=== PATIENT | female | born 1985 | race Caucasian/White ===

== ENCOUNTER 2018-07-04 21:37 | Outpatient (CLI) | payer MEDICAID ==
[2018-07-04 23:07] LABS: ADD UMIC YES; UR ASCORBIC ACID NEGATIVE (NEGATIVE); UR BACTERIA MANY /HPF (NONE SEEN); UR BILIRUBIN (Dip) NEGATIVE (NEGATIVE); UR BLOOD (Dip) NEGATIVE (NEGATIVE); UR CLARITY SLIGHTLY CLOUDY (CLEAR); UR COLOR YELLOW (YELLOW); UR GLUCOSE (Dip) NEGATIVE (NEGATIVE); UR KETONES (Dip) TRACE mg/dL (NEGATIVE); UR LEUKOCYTE ESTERASE (Dip) 3+ Leu/ul (NEGATIVE); UR NITRITE (Dip) NEGATIVE (NEGATIVE); UR RBC 1 /HPF (0-5); UR SPECIFIC GRAVITY (Dip) 1.005 (1.003-1.030); UR SQUAMOUS EPITHELIAL CELL FEW /HPF (FEW); UR TOTAL PROTEIN (Dip) NEGATIVE (NEGATIVE); UR UROBILINOGEN (Dip) NEGATIVE (NEGATIVE); UR WBC 19 /HPF (0-5)
[2018-07-04] MEDS ORDERED: LACTATED RINGER'S 1,000 ML IV (23:30)
[2018-07-04] MEDS ORDERED: ACETAMINOPHEN 325 MG TAB PO (23:30)
[2018-07-04] MEDS: SOD CHLORIDE 0.9% 1,000 ML IV (23:40)
[2018-07-04] MEDS: AL HYDROX/MG HYDROX/SIMETH 30 ML CUP PO (23:41)
[2018-07-05] MEDS ORDERED: LACTATED RINGER'S 1,000 ML IV*
[2018-07-05] MEDS: CEFTRIAXONE 1 GM/50 ML (PMX) 50 ML IVPB (00:03)
[2018-07-05] MEDS: SOD CHLORIDE 0.9% 1,000 ML IV (00:04)
[2018-07-05 00:13] LABS: ADD MAN DIFF? NO; BASOPHILS % 0.2 % (0.0-2.0); EOSINOPHILS # 0.1 10^3/ul (0.0-0.5); EOSINOPHILS % 0.5 % (0.0-7.0); HEMATOCRIT 31.5 % (37.0-47.0); HEMOGLOBIN 10.4 g/dl (12.0-16.0); LYMPHOCYTES # 1.7 10^3/ul (0.8-2.9); LYMPHOCYTES % 17.9 % (15.0-51.0); MEAN CORPUSCULAR HEMOGLOBIN 27.2 pg (29.0-33.0); MEAN CORPUSCULAR VOLUME 82.2 fl (82.0-101.0); MONOCYTE # 0.5 10^3/ul (0.3-0.9); MONOCYTES % 5.5 % (0.0-11.0); NEUTROPHIL # 7.1 10^3/ul (1.6-7.5); NEUTROPHILS % 75.6 % (39.0-77.0); PLATELET COUNT 355 10^3/UL (140-415); RED BLOOD COUNT 3.83 10^6/ul (4.20-5.40); RED CELL DISTRIBUTION WIDTH 12.9 % (11.5-14.5)
[2018-07-05 00:13] LABS: WHITE BLOOD COUNT 9.4 10^3/ul (4.8-10.8)
[2018-07-05] MEDS: ACETAMINOPHEN 1000MG/100ML IV 100 ML IVPB (01:27)
[2018-07-05] MEDS ORDERED: OXYCODONE/ACETAMINOPHEN (5/325) TAB PO (02:00)
[2018-07-05] MEDS: OXYCODONE/ACETAMINOPHEN (5/325) TAB PO ×2 (02:30)
[2018-07-05] MEDS: FAMOTIDINE 20 MG INJ IV (03:34)
[2018-07-05 04:19] LABS: ALANINE AMINOTRANSFERASE 21 IU/L (13-69); ALBUMIN 3.3 g/dl (3.3-4.9); ALBUMIN/GLOBULIN RATIO 1.03; ALKALINE PHOSPHATASE 90 IU/L (42-121); AMYLASE 118 U/L (11-123); ANION GAP 17 (8-16); ASPARTATE AMINO TRANSFERASE 22 IU/L (15-46); BILIRUBIN,INDIRECT 0.1 mg/dl (0-1.1); BILIRUBIN,TOTAL 0.1 mg/dl (0.2-1.3); BLOOD UREA NITROGEN 3 mg/dl (7-20); CALCIUM 8.2 mg/dl (8.4-10.2); CARBON DIOXIDE 19 mmol/L (21-31); CHLORIDE 108 mmol/L (97-110); CREATININE 0.38 mg/dl (0.44-1.00); GLUCOSE 100 mg/dl (70-220); LIPASE 127 U/L (23-300); POTASSIUM 3.2 mmol/L (3.5-5.1); SODIUM 141 mmol/L (135-144); TOTAL PROTEIN 6.5 g/dl (6.1-8.1)
== END 2018-07-05 05:30 | disposition home or self-care (01) ==
LOC: OBT 21:37 → L-D 21:44
DX: O26.892 Other specified pregnancy related conditions, second trimester (principal); Z3A.19 19 weeks gestation of pregnancy; R10.10 Upper abdominal pain, unspecified
CPT/HCPCS: 36415; 76705; 76815; 76817; 80053; 81001; 82150; 83690; 85025; 87086; 96360; 96361; 96366; 96374; 96375

== ENCOUNTER 2018-08-23 05:12 | Outpatient (CLI) | payer MEDICAID ==
[2018-08-23] MEDS: LACTATED RINGER'S 1,000 ML IV ×2 (05:53→14:01)
[2018-08-23] MEDS: ONDANSETRON 4 MG INJ IV (05:55)
[2018-08-23 06:12] LABS: ADD UMIC YES; UR ASCORBIC ACID NEGATIVE (NEGATIVE); UR BACTERIA FEW /HPF (NONE SEEN); UR BILIRUBIN (Dip) 1+ mg/dL (NEGATIVE); UR BLOOD (Dip) NEGATIVE (NEGATIVE); UR CALCIUM OXALATE CRYSTAL MANY /HPF (NONE SEEN); UR CLARITY CLOUDY (CLEAR); UR COLOR AMBER (YELLOW); UR GLUCOSE (Dip) NEGATIVE (NEGATIVE); UR KETONES (Dip) TRACE mg/dL (NEGATIVE); UR LEUKOCYTE ESTERASE (Dip) 2+ Leu/ul (NEGATIVE); UR MUCUS MANY /HPF (NONE SEEN); UR NITRITE (Dip) NEGATIVE (NEGATIVE); UR RBC 11 /HPF (0-5); UR SPECIFIC GRAVITY (Dip) 1.029 (1.003-1.030); UR SQUAMOUS EPITHELIAL CELL MANY /HPF (FEW); UR TOTAL PROTEIN (Dip) 2+ mg/dl (NEGATIVE); UR UROBILINOGEN (Dip) 2+ mg/dL (NEGATIVE); UR WBC 110 /HPF (0-5)
[2018-08-23] MEDS: ACETAMINOPHEN 1000MG/100ML IV 100 ML IVPB (06:35)
[2018-08-23 07:42] LABS: ADD MAN DIFF? NO
[2018-08-23 07:47] LABS: BASOPHILS % 0.2 % (0.0-2.0); EOSINOPHILS % 0.3 % (0.0-7.0); HEMATOCRIT 29.4 % (37.0-47.0); HEMOGLOBIN 9.3 g/dl (12.0-16.0); LYMPHOCYTES % 9.2 % (15.0-51.0); MEAN CORPUSCULAR HEMOGLOBIN 25.6 pg (29.0-33.0); MEAN CORPUSCULAR HGB CONC 31.6 g/dl (32.0-37.0); MEAN PLATELET VOLUME 9.9 fl (7.4-10.4); MONOCYTE # 0.4 10^3/ul (0.3-0.9); NEUTROPHIL # 9.3 10^3/ul (1.6-7.5); NEUTROPHILS % 85.7 % (39.0-77.0); PLATELET COUNT 314 10^3/UL (140-415); RED BLOOD COUNT 3.63 10^6/ul (4.20-5.40); RED CELL DISTRIBUTION WIDTH 13.6 % (11.5-14.5)
[2018-08-23 07:47] LABS: WHITE BLOOD COUNT 10.8 10^3/ul (4.8-10.8)
[2018-08-23] MEDS: CEFTRIAXONE 1 GM/50 ML (PMX) 50 ML IVPB (07:53)
[2018-08-23] MEDS: SOD CHLORIDE 0.9% 1,000 ML IV (07:53)
[2018-08-23 08:06] LABS: INR 0.92; PROTIME 12.4 Sec (11.9-14.9)
[2018-08-23 08:07] LABS: PARTIAL THROMBOPLASTIN TIME 25.2 Sec (23.0-35.0)
[2018-08-23 08:11] LABS: ALANINE AMINOTRANSFERASE 23 IU/L (13-69); ALBUMIN 2.8 g/dl (3.3-4.9); ALBUMIN/GLOBULIN RATIO 0.82; ALKALINE PHOSPHATASE 131 IU/L (42-121); AMYLASE 107 U/L (11-123); ANION GAP 7 (5-13); ASPARTATE AMINO TRANSFERASE 35 IU/L (15-46); BILIRUBIN,INDIRECT 0.2 mg/dl (0-1.1); BILIRUBIN,TOTAL 0.2 mg/dl (0.2-1.3); BLOOD UREA NITROGEN 7 mg/dl (7-20); CALCIUM 8.8 mg/dl (8.4-10.2); CARBON DIOXIDE 24 mmol/L (21-31); CHLORIDE 106 mmol/L (97-110); GLUCOSE 93 mg/dl (70-220); LIPASE 117 U/L (23-300); POTASSIUM 3.6 mmol/L (3.5-5.1); SODIUM 137 mmol/L (135-144); TOTAL PROTEIN 6.2 g/dl (6.1-8.1); URIC ACID 3.4 mg/dl (3.1-7.9)
[2018-08-23] MEDS: TERBUTALINE 1 MG/ML INJ SC (13:45)
[2018-08-23 17:20] LABS: AMPHETAMINE/METHAMPHETAMINE Negative (NEGATIVE); BARBITURATES Negative (NEGATIVE); BENZODIAZEPINES Negative (NEGATIVE); CANNABINOIDS Negative (NEGATIVE); COCAINE Negative (NEGATIVE); OPIATES Negative (NEGATIVE)
== END 2018-08-23 16:53 | disposition home or self-care (01) ==
LOC: OBT 05:12 → L-D 05:12 → OBT 16:53
DX: O99.612 Diseases of the digestive system complicating pregnancy, second trimester (principal); K80.20 Calculus of gallbladder without cholecystitis without obstruction; O23.42 Unspecified infection of urinary tract in pregnancy, second trimester; O26.892 Other specified pregnancy related conditions, second trimester; R10.9 Unspecified abdominal pain; Z3A.26 26 weeks gestation of pregnancy
CPT/HCPCS: 36415; 76705; 76815; 76817; 80053; 80307; 81001; 82150; 83690; 84560; 85025; 85610; 85730; 87086; 96360; 96361; 96365; 96372

== ENCOUNTER 2018-10-07 03:17 | Outpatient (CLI) | payer SELFPAY, MEDICAID ==
[2018-10-07 04:20] LABS: ADD MAN DIFF? NO
[2018-10-07] MEDS: LACTATED RINGER'S 1,000 ML IV* (04:20)
[2018-10-07 04:24] LABS: BASOPHILS % 0.2 % (0.0-2.0); EOSINOPHILS # 0.1 10^3/ul (0.0-0.5); EOSINOPHILS % 0.8 % (0.0-7.0); HEMATOCRIT 29.6 % (37.0-47.0); HEMOGLOBIN 9.2 g/dl (12.0-16.0); LYMPHOCYTES # 1.4 10^3/ul (0.8-2.9); LYMPHOCYTES % 16.7 % (15.0-51.0); MEAN CORPUSCULAR HEMOGLOBIN 23.1 pg (29.0-33.0); MEAN CORPUSCULAR HGB CONC 31.1 g/dl (32.0-37.0); MEAN CORPUSCULAR VOLUME 74.2 fl (82.0-101.0); MEAN PLATELET VOLUME 10.3 fl (7.4-10.4); MONOCYTE # 0.5 10^3/ul (0.3-0.9); MONOCYTES % 5.8 % (0.0-11.0); NEUTROPHIL # 6.5 10^3/ul (1.6-7.5); PLATELET COUNT 318 10^3/UL (140-415); RED BLOOD COUNT 3.99 10^6/ul (4.20-5.40); RED CELL DISTRIBUTION WIDTH 14.5 % (11.5-14.5)
[2018-10-07 04:24] LABS: WHITE BLOOD COUNT 8.6 10^3/ul (4.8-10.8)
[2018-10-07] MEDS: AL HYDROX/MG HYDROX/SIMETH 30 ML CUP PO (04:29)
[2018-10-07] MEDS: FAMOTIDINE 20 MG INJ IV (04:30)
[2018-10-07 04:31] LABS: ADD UMIC YES; UR ASCORBIC ACID NEGATIVE (NEGATIVE); UR BACTERIA FEW /HPF (NONE SEEN); UR BILIRUBIN (Dip) 1+ mg/dL (NEGATIVE); UR BLOOD (Dip) NEGATIVE (NEGATIVE); UR CLARITY SLIGHTLY CLOUDY (CLEAR); UR COLOR AMBER (YELLOW); UR GLUCOSE (Dip) NEGATIVE (NEGATIVE); UR KETONES (Dip) NEGATIVE (NEGATIVE); UR LEUKOCYTE ESTERASE (Dip) TRACE Leu/ul (NEGATIVE); UR MUCUS MANY /HPF (NONE SEEN); UR NITRITE (Dip) NEGATIVE (NEGATIVE); UR RBC 1 /HPF (0-5); UR SPECIFIC GRAVITY (Dip) 1.025 (1.003-1.030); UR SQUAMOUS EPITHELIAL CELL FEW /HPF (FEW); UR TOTAL PROTEIN (Dip) 2+ mg/dl (NEGATIVE); UR UROBILINOGEN (Dip) 2+ mg/dL (NEGATIVE); UR WBC 8 /HPF (0-5)
[2018-10-07] MEDS: ONDANSETRON 4 MG INJ IV (04:33)
[2018-10-07 04:47] LABS: ALANINE AMINOTRANSFERASE 15 IU/L (13-69); ALBUMIN 3.6 g/dl (3.3-4.9); ALKALINE PHOSPHATASE 229 IU/L (42-121); ANION GAP 10 (5-13); ASPARTATE AMINO TRANSFERASE 26 IU/L (15-46); BILIRUBIN,INDIRECT 0.3 mg/dl (0-1.1); BILIRUBIN,TOTAL 0.3 mg/dl (0.2-1.3); BLOOD UREA NITROGEN 6 mg/dl (7-20); CALCIUM 8.5 mg/dl (8.4-10.2); CARBON DIOXIDE 23 mmol/L (21-31); CHLORIDE 106 mmol/L (97-110); CREATININE 0.47 mg/dl (0.44-1.00); Estimated GFR > 60 mL/min (>60); GLUCOSE 97 mg/dl (70-220); POTASSIUM 3.2 mmol/L (3.5-5.1); SODIUM 139 mmol/L (135-144); TOTAL PROTEIN 7.2 g/dl (6.1-8.1)
[2018-10-07] MEDS: TERBUTALINE 1 MG/ML INJ SC (05:19)
[2018-10-07] MEDS: BUTORPHANOL 2 MG INJ IV (05:20)
[2018-10-07] MEDS: POTASSIUM CHLORIDE (SR) 20 MEQ TAB PO (05:33)
== END 2018-10-07 07:02 | disposition home or self-care (01) ==
LOC: OBT 03:17 → L-D 03:18 → OBT 07:02
DX: O26.893 Other specified pregnancy related conditions, third trimester (principal); R10.11 Right upper quadrant pain; O21.0 Mild hyperemesis gravidarum; Z3A.33 33 weeks gestation of pregnancy
CPT/HCPCS: 36415; 76705; 76817; 76818; 80053; 81001; 82731; 85025; 87086; 96361; 96365; 96372; 96374; 96375

== ENCOUNTER 2018-11-01 22:47 | Inpatient (IN) | payer SELFPAY ==
[2018-11-01] MEDS: LACTATED RINGER'S 1,000 ML IV (23:34)
[2018-11-01] MEDS: ONDANSETRON 4 MG INJ IV (23:38)
[2018-11-01] MEDS: morphine 10 MG INJ IV (23:38)
[2018-11-02] MEDS ORDERED: LACTATED RINGER'S 1,000 ML IV (00:30)
[2018-11-02] MEDS: LIDOCAINE/MYLANTA 40 ML BTL PO (01:58)
[2018-11-02] MEDS: LACTATED RINGER'S 1,000 ML IV (03:05)
[2018-11-02 08:08] LABS: ADD MAN DIFF? NO
[2018-11-02 08:25] LABS: BASOPHILS % 0.3 % (0.0-2.0); EOSINOPHILS # 0.1 10^3/ul (0.0-0.5); EOSINOPHILS % 1.7 % (0.0-7.0); HEMOGLOBIN 7.6 g/dl (12.0-16.0); LYMPHOCYTES # 1.7 10^3/ul (0.8-2.9); LYMPHOCYTES % 29.5 % (15.0-51.0); MEAN CORPUSCULAR HEMOGLOBIN 21.4 pg (29.0-33.0); MEAN CORPUSCULAR HGB CONC 29.2 g/dl (32.0-37.0); MEAN CORPUSCULAR VOLUME 73.2 fl (82.0-101.0); MEAN PLATELET VOLUME 11.3 fl (7.4-10.4); MONOCYTE # 0.4 10^3/ul (0.3-0.9); MONOCYTES % 6.9 % (0.0-11.0); NEUTROPHIL # 3.5 10^3/ul (1.6-7.5); NEUTROPHILS % 61.3 % (39.0-77.0); NUCLEATED RED BLOOD CELLS% 0.3 /100WBC (0.0-0.0); PLATELET COUNT 250 10^3/UL (140-415); RED BLOOD COUNT 3.55 10^6/ul (4.20-5.40); RED CELL DISTRIBUTION WIDTH 15.7 % (11.5-14.5)
[2018-11-02 08:25] LABS: WHITE BLOOD COUNT 5.8 10^3/ul (4.8-10.8)
[2018-11-02 09:07] LABS: ALBUMIN/GLOBULIN RATIO 1.03; ANION GAP 10 (5-13); Estimated GFR > 60 mL/min (>60)
[2018-11-02 09:23] LABS: SODIUM 140 mmol/L (135-144)
[2018-11-02 09:24] LABS: ALANINE AMINOTRANSFERASE 22 IU/L (13-69); ALKALINE PHOSPHATASE 228 IU/L (42-121); ASPARTATE AMINO TRANSFERASE 24 IU/L (15-46); BLOOD UREA NITROGEN 7 mg/dl (7-20); CALCIUM 8.6 mg/dl (8.4-10.2); CARBON DIOXIDE 22 mmol/L (21-31); CHLORIDE 108 mmol/L (97-110); CREATININE 0.42 mg/dl (0.44-1.00); GLUCOSE 82 mg/dl (70-220); POTASSIUM 3.7 mmol/L (3.5-5.1); TOTAL PROTEIN 5.9 g/dl (6.1-8.1)
== END 2018-11-02 10:03 | disposition home or self-care (01) | DRG 833 ==
LOC: OBT 22:47 → L-D 22:48
DX: O99.619 Diseases of the digestive system complicating pregnancy, unspecified trimester (principal)
CPT/HCPCS: 76815; 80053; 85025

== ENCOUNTER 2018-11-10 10:17 | Inpatient (IN) | payer MEDICAID ==
[2018-11-10] MEDS: LACTATED RINGER'S 1,000 ML IV ×4 (10:57→23:02)
[2018-11-10] MEDS ORDERED: OXYTOCIN 30 UNITS/LR 500 ML IV (11:00)
[2018-11-10] MEDS ORDERED: MISOPROSTOL 200 MCG TAB PR (11:00)
[2018-11-10] MEDS ORDERED: METHYLERGONOVINE 0.2 MG INJ IM (11:00)
[2018-11-10] MEDS ORDERED: CARBOPROST 250 MCG INJ IM (11:00)
[2018-11-10] MEDS ORDERED: LIDOCAINE 1% (MPF) 30 ML INJ INJ (11:00)
[2018-11-10] MEDS: BUTORPHANOL 2 MG INJ IV (11:03)
[2018-11-10 12:13] LABS: ADD MAN DIFF? NO
[2018-11-10 12:21] LABS: WHITE BLOOD COUNT 7.5 10^3/ul (4.8-10.8)
[2018-11-10 12:21] LABS: BASOPHILS % 0.5 % (0.0-2.0); EOSINOPHILS # 0.1 10^3/ul (0.0-0.5); EOSINOPHILS % 0.9 % (0.0-7.0); HEMATOCRIT 28.8 % (37.0-47.0); HEMOGLOBIN 8.5 g/dl (12.0-16.0); LYMPHOCYTES # 2.9 10^3/ul (0.8-2.9); LYMPHOCYTES % 38.3 % (15.0-51.0); MEAN CORPUSCULAR HEMOGLOBIN 21.4 pg (29.0-33.0); MEAN CORPUSCULAR HGB CONC 29.5 g/dl (32.0-37.0); MEAN CORPUSCULAR VOLUME 72.4 fl (82.0-101.0); MEAN PLATELET VOLUME 11.8 fl (7.4-10.4); MONOCYTE # 0.6 10^3/ul (0.3-0.9); MONOCYTES % 8.4 % (0.0-11.0); NEUTROPHIL # 3.8 10^3/ul (1.6-7.5); NEUTROPHILS % 51.5 % (39.0-77.0); NUCLEATED RED BLOOD CELLS% 0.5 /100WBC (0.0-0.0); PLATELET COUNT 281 10^3/UL (140-415); RED BLOOD COUNT 3.98 10^6/ul (4.20-5.40); RED CELL DISTRIBUTION WIDTH 16.3 % (11.5-14.5)
[2018-11-10] MEDS ORDERED: AMPICILLIN 2 GM/NS (PMX) 100 ML (13:12)
[2018-11-10] MEDS: AMPICILLIN 2 GM/NS (PMX) 100 ML IV (13:25)
[2018-11-10 13:49] LABS: PROTIME 12.3 Sec (11.9-14.9)
[2018-11-10 13:50] LABS: PARTIAL THROMBOPLASTIN TIME 27.1 Sec (23.0-35.0)
[2018-11-10] MEDS: OXYTOCIN 30 UNITS/LR 500 ML IV (14:35)
[2018-11-10 15:11] LABS: RAPID PLASMA REAGIN NONREACTIVE (NR)
[2018-11-10 15:54] LABS: HEPATITIS B SURFACE ANTIGEN NEGATIVE (NEGATIVE)
[2018-11-10 16:04] LABS: HIV 1&2 ANTIBODY NEGATIVE (NEGATIVE)
[2018-11-10 16:07] LABS: ALANINE AMINOTRANSFERASE 15 IU/L (13-69); ALBUMIN 3.7 g/dl (3.3-4.9); ALKALINE PHOSPHATASE 282 IU/L (42-121); ANION GAP 9 (5-13); ASPARTATE AMINO TRANSFERASE 46 IU/L (15-46); BLOOD UREA NITROGEN 8 mg/dl (7-20); CARBON DIOXIDE 23 mmol/L (21-31); CHLORIDE 105 mmol/L (97-110); CREATININE 0.46 mg/dl (0.44-1.00); Estimated GFR > 60 mL/min (>60); GLUCOSE 88 mg/dl (70-220); POTASSIUM 4.2 mmol/L (3.5-5.1); SODIUM 137 mmol/L (135-144); TOTAL PROTEIN 7.8 g/dl (6.1-8.1); URIC ACID 4.8 mg/dl (3.1-7.9)
[2018-11-10] MEDS ORDERED: FENTAnyl 2MCG/ML-ROPIV 0.2% 100 ML (17:15)
[2018-11-10] MEDS ORDERED: NALOXONE (0.4 MG/ML) INJ IV (17:30)
[2018-11-10] MEDS: AMPICILLIN 1 GM/NS (PMX) 50 ML IV ×2 (17:54→21:27)
[2018-11-10 18:20] LABS: ADD UMIC NO; UR ASCORBIC ACID NEGATIVE (NEGATIVE); UR BILIRUBIN (Dip) NEGATIVE (NEGATIVE); UR BLOOD (Dip) NEGATIVE (NEGATIVE); UR CLARITY CLEAR (CLEAR); UR COLOR STRAW (YELLOW); UR GLUCOSE (Dip) NEGATIVE (NEGATIVE); UR KETONES (Dip) NEGATIVE (NEGATIVE); UR LEUKOCYTE ESTERASE (Dip) NEGATIVE Leu/ul (NEGATIVE); UR NITRITE (Dip) NEGATIVE (NEGATIVE); UR SPECIFIC GRAVITY (Dip) 1.005 (1.003-1.030); UR TOTAL PROTEIN (Dip) NEGATIVE (NEGATIVE); UR UROBILINOGEN (Dip) NEGATIVE (NEGATIVE)
[2018-11-10 18:34] LABS: AMPHETAMINE/METHAMPHETAMINE Negative (NEGATIVE); BARBITURATES Negative (NEGATIVE); BENZODIAZEPINES Negative (NEGATIVE); CANNABINOIDS Negative (NEGATIVE); COCAINE Negative (NEGATIVE); OPIATES Negative (NEGATIVE)
[2018-11-11] MEDS: AMPICILLIN 1 GM/NS (PMX) 50 ML IV (01:23)
[2018-11-11] MEDS: FENTAnyl 2MCG/ML-ROPIV 0.2% 100 ML BAG EPI (03:06)
[2018-11-11] MEDS: OXYTOCIN 30 UNITS/LR 500 ML IV ×2 (05:10→05:16)
[2018-11-11] MEDS: IBUPROFEN 600 MG TAB PO ×4 (07:32→23:24)
[2018-11-11] MEDS ORDERED: MISOPROSTOL 200 MCG TAB PR (08:30)
[2018-11-11] MEDS ORDERED: ZOLPIDEM 5 MG TAB PO (08:30)
[2018-11-11] MEDS ORDERED: OXYCODONE/ASPIRIN (4.88/325) TAB PO ×2 (08:30)
[2018-11-11] MEDS ORDERED: METHYLERGONOVINE 0.2 MG INJ IM (08:30)
[2018-11-11] MEDS ORDERED: OXYTOCIN 30 UNITS/LR 500 ML IV (08:30)
[2018-11-11] MEDS ORDERED: CARBOPROST 250 MCG INJ IM (08:30)
[2018-11-11] MEDS ORDERED: BENZOCAINE 20% 56 ML SPRAY TOP (08:30)
[2018-11-11] MEDS: SENNA/DOCUSATE NA (8.6MG/50MG) TAB PO ×2 (10:05→21:36)
[2018-11-11] MEDS: WITCH HAZEL/GLYCERIN PAD PR (10:05)
[2018-11-11] MEDS: LANOLIN HPA 1 PKT TOP (10:05)
[2018-11-12] MEDS: IBUPROFEN 600 MG TAB PO ×4 (05:39→23:56)
[2018-11-12 08:46] LABS: ADD MAN DIFF? NO
[2018-11-12 08:48] LABS: BASOPHILS % 0.4 % (0.0-2.0); EOSINOPHILS # 0.2 10^3/ul (0.0-0.5); EOSINOPHILS % 1.8 % (0.0-7.0); HEMATOCRIT 25.5 % (37.0-47.0); HEMOGLOBIN 7.7 g/dl (12.0-16.0); LYMPHOCYTES # 3.8 10^3/ul (0.8-2.9); LYMPHOCYTES % 46.8 % (15.0-51.0); MEAN CORPUSCULAR HEMOGLOBIN 21.6 pg (29.0-33.0); MEAN CORPUSCULAR HGB CONC 30.2 g/dl (32.0-37.0); MEAN CORPUSCULAR VOLUME 71.4 fl (82.0-101.0); MEAN PLATELET VOLUME 11.3 fl (7.4-10.4); MONOCYTE # 0.5 10^3/ul (0.3-0.9); MONOCYTES % 6.1 % (0.0-11.0); NEUTROPHIL # 3.6 10^3/ul (1.6-7.5); NEUTROPHILS % 44.4 % (39.0-77.0); NUCLEATED RED BLOOD CELLS% 0.5 /100WBC (0.0-0.0); PLATELET COUNT 281 10^3/UL (140-415); RED BLOOD COUNT 3.57 10^6/ul (4.20-5.40); RED CELL DISTRIBUTION WIDTH 16.7 % (11.5-14.5)
[2018-11-12 08:48] LABS: WHITE BLOOD COUNT 8.2 10^3/ul (4.8-10.8)
[2018-11-12] MEDS: SENNA/DOCUSATE NA (8.6MG/50MG) TAB PO ×2 (10:32→23:56)
[2018-11-12 12:27] LABS: RUBELLA ANTIBODY - IGG <0.90 index; RUBELLA ANTIBODY - IGM <20.00 AU/mL
[2018-11-13] MEDS: IBUPROFEN 600 MG TAB PO ×2 (05:47→12:08)
[2018-11-13] MEDS: SENNA/DOCUSATE NA (8.6MG/50MG) TAB PO (09:08)
[2018-11-13] MEDS: DIPHTH/TET/ACEL PERTUSS (ADULT) 0.5 ML VIAL IM* (15:08)
== END 2018-11-13 15:55 | disposition home or self-care (01) | DRG 807 ==
LOC: OBT 10:17 → PP1 11-11 08:06 → L-D 10:17 → OBT 10:26 → L-D 10:26
PROVIDERS: Obstetrics & Gynecology
PROC: 10E0XZZ Delivery of Products of Conception, External Approach (ICD-10-PCS; principal; 2018-11-11)
DX: O99.02 Anemia complicating childbirth (principal); Z37.0 Single live birth; D64.9 Anemia, unspecified; Z3A.39 39 weeks gestation of pregnancy; Z23 Encounter for immunization
CPT/HCPCS: 62319; 76705; 80053; 80307; 81003; 84560; 85025; 85384; 85610; 85730; 86592; 86703; 86762; 86850; 86900; 86901; 87340; 90686; 90715

== ENCOUNTER 2018-11-28 19:56 | Inpatient (IN) | payer MEDICAID ==
[2018-11-28] MEDS: SOD CHLORIDE 0.9% 1,000 ML IV (22:03)
[2018-11-28] MEDS: ONDANSETRON 4 MG INJ IV (22:03)
[2018-11-28] MEDS: morphine 4 MG/ML VIAL IV (22:03)
[2018-11-28 22:26] LABS: WHITE BLOOD COUNT 14.2 10^3/ul (4.8-10.8)
[2018-11-28 22:26] LABS: BASOPHILS % 0.3 % (0.0-2.0); EOSINOPHILS # 0.1 10^3/ul (0.0-0.5); EOSINOPHILS % 0.5 % (0.0-7.0); HEMATOCRIT 32.1 % (37.0-47.0); HEMOGLOBIN 9.4 g/dl (12.0-16.0); LYMPHOCYTES # 1.8 10^3/ul (0.8-2.9); LYMPHOCYTES % 12.7 % (15.0-51.0); MEAN CORPUSCULAR HEMOGLOBIN 21.2 pg (29.0-33.0); MEAN CORPUSCULAR HGB CONC 29.3 g/dl (32.0-37.0); MEAN CORPUSCULAR VOLUME 72.5 fl (82.0-101.0); MEAN PLATELET VOLUME 9.4 fl (7.4-10.4); MONOCYTE # 0.5 10^3/ul (0.3-0.9); MONOCYTES % 3.8 % (0.0-11.0); NEUTROPHIL # 11.7 10^3/ul (1.6-7.5); NEUTROPHILS % 82.3 % (39.0-77.0); PLATELET COUNT 510 10^3/UL (140-415); RED BLOOD COUNT 4.43 10^6/ul (4.20-5.40); RED CELL DISTRIBUTION WIDTH 18.6 % (11.5-14.5)
[2018-11-28 22:27] LABS: ADD MAN DIFF? NO
[2018-11-28 22:32] LABS: ADD UMIC YES; UR ASCORBIC ACID NEGATIVE (NEGATIVE); UR BACTERIA FEW /HPF (NONE SEEN); UR BILIRUBIN (Dip) NEGATIVE (NEGATIVE); UR BLOOD (Dip) 3+ mg/dL (NEGATIVE); UR CLARITY SLIGHTLY CLOUDY (CLEAR); UR COLOR YELLOW (YELLOW); UR GLUCOSE (Dip) NEGATIVE (NEGATIVE); UR KETONES (Dip) NEGATIVE (NEGATIVE); UR LEUKOCYTE ESTERASE (Dip) 3+ Leu/ul (NEGATIVE); UR MUCUS FEW /HPF (NONE SEEN); UR NITRITE (Dip) NEGATIVE (NEGATIVE); UR RBC 93 /HPF (0-5); UR SPECIFIC GRAVITY (Dip) 1.028 (1.003-1.030); UR TOTAL PROTEIN (Dip) NEGATIVE (NEGATIVE); UR UROBILINOGEN (Dip) 2+ mg/dL (NEGATIVE); UR WBC 16 /HPF (0-5)
[2018-11-28] MEDS ORDERED: HYDROmorphONE 0.5 MG/0.5 ML SYG IM (22:34)
[2018-11-28 22:48] LABS: ALANINE AMINOTRANSFERASE 27 IU/L (13-69); ALBUMIN 4.6 g/dl (3.3-4.9); ALBUMIN/GLOBULIN RATIO 1.17; ALKALINE PHOSPHATASE 152 IU/L (42-121); ANION GAP 15 (5-13); ASPARTATE AMINO TRANSFERASE 31 IU/L (15-46); BLOOD UREA NITROGEN 11 mg/dl (7-20); CALCIUM 9.6 mg/dl (8.4-10.2); CARBON DIOXIDE 27 mmol/L (21-31); CHLORIDE 102 mmol/L (97-110); CREATININE 0.56 mg/dl (0.44-1.00); Estimated GFR > 60 mL/min (>60); GLUCOSE 116 mg/dl (70-220); LIPASE 235 U/L (23-300); POTASSIUM 3.6 mmol/L (3.5-5.1); SODIUM 144 mmol/L (135-144); TOTAL PROTEIN 8.5 g/dl (6.1-8.1)
[2018-11-28] MEDS: HYDROmorphONE 2 MG/ML SYG IV (22:57)
[2018-11-28] MEDS: CEFTRIAXONE 1 GM/50 ML (PMX) 50 ML IVPB (23:38)
[2018-11-29] MEDS ORDERED: ACETAMINOPHEN 325 MG TAB PO ×2 (01:00)
[2018-11-29] MEDS ORDERED: NACL 0.9% 3 ML SYG IV (01:00)
[2018-11-29] MEDS ORDERED: ONDANSETRON 4 MG INJ IV (01:00)
[2018-11-29] MEDS ORDERED: BISACODYL (EC) 5 MG TAB PO (01:00)
[2018-11-29] MEDS: SOD CHLORIDE 0.9% 1,000 ML IV ×3 (03:14→20:38)
[2018-11-29] MEDS: PIPER-TAZO 3.375 GM IV (PMX) 100 ML IVPB ×4 (03:14→20:38)
[2018-11-29 04:45] LABS: IRON 33 ug/dl (35-150)
[2018-11-29 04:55] LABS: % IRON SATURATION 7 % SAT (22-52); TOTAL IRON BINDING CAPACITY 441 ug/dl (241-421)
[2018-11-29 05:22] LABS: FERRITIN 4.9 ng/ml (6.2-137.0)
[2018-11-30] MEDS: PIPER-TAZO 3.375 GM IV (PMX) 100 ML IVPB ×4 (02:48→20:29)
[2018-11-30] MEDS: SOD CHLORIDE 0.9% 1,000 ML IV ×3 (05:16→22:41)
[2018-11-30 06:16] LABS: ADD MAN DIFF? NO
[2018-11-30 06:25] LABS: BASOPHILS % 0.4 % (0.0-2.0); EOSINOPHILS # 0.3 10^3/ul (0.0-0.5); EOSINOPHILS % 5.2 % (0.0-7.0); HEMATOCRIT 28.1 % (37.0-47.0); HEMOGLOBIN 8.2 g/dl (12.0-16.0); LYMPHOCYTES # 2.3 10^3/ul (0.8-2.9); LYMPHOCYTES % 47.3 % (15.0-51.0); MEAN CORPUSCULAR HEMOGLOBIN 21.5 pg (29.0-33.0); MEAN CORPUSCULAR HGB CONC 29.2 g/dl (32.0-37.0); MEAN CORPUSCULAR VOLUME 73.8 fl (82.0-101.0); MEAN PLATELET VOLUME 9.8 fl (7.4-10.4); MONOCYTE # 0.4 10^3/ul (0.3-0.9); MONOCYTES % 7.9 % (0.0-11.0); NEUTROPHIL # 1.9 10^3/ul (1.6-7.5); PLATELET COUNT 436 10^3/UL (140-415); RED BLOOD COUNT 3.81 10^6/ul (4.20-5.40); RED CELL DISTRIBUTION WIDTH 18.9 % (11.5-14.5)
[2018-11-30 06:25] LABS: WHITE BLOOD COUNT 4.8 10^3/ul (4.8-10.8)
[2018-11-30 06:27] LABS: HEMOGLOBIN A1C 5.7 % (0-5.9)
[2018-11-30 06:51] LABS: ALANINE AMINOTRANSFERASE 20 IU/L (13-69); ALBUMIN 3.4 g/dl (3.3-4.9); ALBUMIN/GLOBULIN RATIO 1.03; ALKALINE PHOSPHATASE 95 IU/L (42-121); ANION GAP 9 (5-13); ASPARTATE AMINO TRANSFERASE 18 IU/L (15-46); BILIRUBIN,INDIRECT 0.3 mg/dl (0-1.1); BILIRUBIN,TOTAL 0.3 mg/dl (0.2-1.3); BLOOD UREA NITROGEN 5 mg/dl (7-20); CALCIUM 8.7 mg/dl (8.4-10.2); CARBON DIOXIDE 25 mmol/L (21-31); CHLORIDE 110 mmol/L (97-110); CHOL/HDL RATIO 3.8 RATIO; CHOLESTEROL 185 mg/dl (100-200); CREATININE 0.66 mg/dl (0.44-1.00); Estimated GFR > 60 mL/min (>60); GLUCOSE 77 mg/dl (70-220); HDL CHOLESTEROL 48 mg/dl (34-82); LDL CHOLESTEROL,CALCULATED 114 mg/dl; MAGNESIUM 1.8 mg/dl (1.7-2.5); POTASSIUM 3.5 mmol/L (3.5-5.1); SODIUM 144 mmol/L (135-144); TOTAL PROTEIN 6.7 g/dl (6.1-8.1); TRIGLYCERIDES 114 mg/dl (0-149)
[2018-11-30] MEDS ORDERED: DESFLURANE 15 MIN (07:00)
[2018-11-30] MEDS ORDERED: INDOMETHACIN 50 MG SUPP PR (09:00)
[2018-11-30] MEDS ORDERED: MEPERIDINE 25 MG INJ IV (12:00)
[2018-11-30] MEDS ORDERED: ALBUTEROL 0.083% (NEB) 2.5 MG/3 ML AMP HHN (12:00)
[2018-11-30] MEDS ORDERED: FENTAnyl 50 MCG/ML VIAL IV ×2 (12:00)
[2018-11-30] MEDS ORDERED: HYDROmorphONE 1 MG/5 ML IV SYRINGE IV ×3 (12:00)
[2018-11-30] MEDS ORDERED: ONDANSETRON 4 MG INJ IV (12:00)
[2018-11-30] MEDS ORDERED: METOCLOPRAMIDE 10 MG INJ IV (12:00)
[2018-11-30] MEDS ORDERED: DIPHENHYDRAMINE 50 MG INJ IV (12:00)
[2018-11-30] MEDS ORDERED: FENTAnyl 50 MCG/ML VIAL (12:36)
[2018-11-30] MEDS ORDERED: ROCURONIUM 50 MG INJ (12:49)
[2018-11-30] MEDS ORDERED: SUGAMMADEX SODIUM 200 MG/2 ML VIAL IV (12:49)
[2018-11-30] MEDS ORDERED: SUCCINYLCHOLINE CHLORIDE 100 MG/5 ML SYG IV (12:49)
[2018-11-30] MEDS ORDERED: LIDOCAINE 100 MG SYRINGE (12:49)
[2018-11-30] MEDS ORDERED: PROPOFOL 20 ML (12:49)
[2018-11-30] MEDS ORDERED: CEFAZOLIN 1 GM INJ (12:49)
[2018-12-01] MEDS: PIPER-TAZO 3.375 GM IV (PMX) 100 ML IVPB ×3 (02:46→23:04)
[2018-12-01] MEDS ORDERED: DESFLURANE 15 MIN (07:00)
[2018-12-01] MEDS ORDERED: SUCCINYLCHOLINE CHLORIDE 100 MG/5 ML SYG IV ×2 (07:00→10:22)
[2018-12-01] MEDS ORDERED: CEFAZOLIN 1 GM INJ (07:00)
[2018-12-01] MEDS ORDERED: LIDOCAINE 2% (SDV) 5 ML INJ (07:00)
[2018-12-01] MEDS ORDERED: ONDANSETRON 4 MG INJ IV ×2 (10:00→11:00)
[2018-12-01] MEDS ORDERED: ALBUTEROL 0.083% (NEB) 2.5 MG/3 ML AMP HHN (10:00)
[2018-12-01] MEDS ORDERED: DIPHENHYDRAMINE 50 MG INJ IV (10:00)
[2018-12-01] MEDS ORDERED: FENTAnyl 50 MCG/ML VIAL IV (10:00)
[2018-12-01] MEDS ORDERED: HYDROmorphONE 1 MG/5 ML IV SYRINGE IV ×2 (10:00)
[2018-12-01] MEDS ORDERED: METOCLOPRAMIDE 10 MG INJ IV (10:00)
[2018-12-01] MEDS ORDERED: FENTAnyl 50 MCG/ML VIAL (10:08)
[2018-12-01] MEDS ORDERED: ROPIVACAINE 0.5 % 30 ML VIAL (10:09)
[2018-12-01] MEDS ORDERED: NEOSTIGMINE 3 MG/3 ML SYRINGE (10:22)
[2018-12-01] MEDS ORDERED: PROPOFOL 20 ML (10:22)
[2018-12-01] MEDS ORDERED: ROCURONIUM 50 MG INJ (10:22)
[2018-12-01] MEDS ORDERED: GLYCOPYRROLATE 0.4 MG INJ (10:22)
[2018-12-01] MEDS: BUPIVACAINE 0.5%/EPI (SDV) 30 ML INJ (10:35)
[2018-12-01] MEDS ORDERED: SUGAMMADEX SODIUM 200 MG/2 ML VIAL IV (10:38)
[2018-12-01] MEDS ORDERED: OXYCODONE/ACETAMINOPHEN (5/325) TAB PO (11:00)
[2018-12-01] MEDS ORDERED: HYDROmorphONE 0.5 MG/0.5 ML SYG IV (11:00)
[2018-12-01] MEDS: FENTAnyl 50 MCG/ML VIAL IV (11:08)
[2018-12-01] MEDS: HYDROmorphONE 1 MG/5 ML IV SYRINGE IV (11:09)
[2018-12-01] MEDS: ONDANSETRON 4 MG INJ IV (11:14)
[2018-12-01] MEDS: MEPERIDINE 25 MG INJ IV (11:15)
[2018-12-01] MEDS: SOD CHLORIDE 0.9% 1,000 ML IV ×2 (12:53→23:04)
[2018-12-01] MEDS: HYDROmorphONE 0.5 MG/0.5 ML SYG IV ×2 (17:37→21:50)
[2018-12-01] MEDS: TRIMETHOPRIM/SULFAMETHOX (DS) TAB PO (20:21)
[2018-12-01] MEDS: DOCUSATE SODIUM 100 MG CAP PO (20:21)
[2018-12-01] MEDS: OXYCODONE/ACETAMINOPHEN (5/325) TAB PO (20:22)
[2018-12-01] MEDS ORDERED: LEVALBUTEROL (NEB) 1.25 MG/0.5 ML AMP HHN (22:00)
[2018-12-01] MEDS: LEVALBUTEROL (NEB) 1.25 MG/0.5 ML AMP HHN (22:07)
[2018-12-01] MEDS ORDERED: VANCOMYCIN IV PER PHARMACY XX (23:00)
[2018-12-01] MEDS: VANCOMYCIN HCL 1.25 GM in SOD CHLORIDE 0.9% 250 ML IVPB (23:56)
[2018-12-02] MEDS: OXYCODONE/ACETAMINOPHEN (5/325) TAB PO (00:40)
[2018-12-02] MEDS: PIPER-TAZO 3.375 GM IV (PMX) 100 ML IVPB ×3 (05:11→17:54)
[2018-12-02 05:49] LABS: ADD MAN DIFF? NO
[2018-12-02 05:53] LABS: WHITE BLOOD COUNT 7.6 10^3/ul (4.8-10.8)
[2018-12-02 05:53] LABS: ABNORMAL IP MESSAGE 1; BASOPHILS % 0.3 % (0.0-2.0); EOSINOPHILS # 0.1 10^3/ul (0.0-0.5); EOSINOPHILS % 1.4 % (0.0-7.0); HEMATOCRIT 28.9 % (37.0-47.0); HEMOGLOBIN 8.3 g/dl (12.0-16.0); LYMPHOCYTES # 1.9 10^3/ul (0.8-2.9); LYMPHOCYTES % 25.5 % (15.0-51.0); MEAN CORPUSCULAR HEMOGLOBIN 21.2 pg (29.0-33.0); MEAN CORPUSCULAR HGB CONC 28.7 g/dl (32.0-37.0); MEAN CORPUSCULAR VOLUME 73.9 fl (82.0-101.0); MEAN PLATELET VOLUME 9.6 fl (7.4-10.4); MONOCYTE # 0.5 10^3/ul (0.3-0.9); MONOCYTES % 5.9 % (0.0-11.0); NEUTROPHIL # 5.1 10^3/ul (1.6-7.5); NEUTROPHILS % 66.6 % (39.0-77.0); PLATELET COUNT 384 10^3/UL (140-415); RED BLOOD COUNT 3.91 10^6/ul (4.20-5.40); RED CELL DISTRIBUTION WIDTH 19.5 % (11.5-14.5)
[2018-12-02 06:14] LABS: POSITIVE DIFF @See below
[2018-12-02 06:15] LABS: ALANINE AMINOTRANSFERASE 30 IU/L (13-69); ALBUMIN 3.4 g/dl (3.3-4.9); ALBUMIN/GLOBULIN RATIO 1.13; ALKALINE PHOSPHATASE 102 IU/L (42-121); ANION GAP 11 (5-13); ASPARTATE AMINO TRANSFERASE 57 IU/L (15-46); BILIRUBIN,INDIRECT 0.5 mg/dl (0-1.1); BILIRUBIN,TOTAL 0.5 mg/dl (0.2-1.3); BLOOD UREA NITROGEN 3 mg/dl (7-20); CALCIUM 8.4 mg/dl (8.4-10.2); CARBON DIOXIDE 30 mmol/L (21-31); CHLORIDE 101 mmol/L (97-110); CREATININE 0.67 mg/dl (0.44-1.00); Estimated GFR > 60 mL/min (>60); GLUCOSE 95 mg/dl (70-220); LIPASE 88 U/L (23-300); SODIUM 142 mmol/L (135-144); TOTAL PROTEIN 6.4 g/dl (6.1-8.1)
[2018-12-02 06:42] LABS: POTASSIUM 2.8 mmol/L (3.5-5.1)
[2018-12-02] MEDS: POTASSIUM CHLORIDE (SR) 20 MEQ TAB PO (06:51)
[2018-12-02 06:59] LABS: MAGNESIUM 1.6 mg/dl (1.7-2.5)
[2018-12-02] MEDS: SOD CHLORIDE 0.9% 1,000 ML IV ×2 (08:30→17:53)
[2018-12-02] MEDS: TRIMETHOPRIM/SULFAMETHOX (DS) TAB PO (08:30)
[2018-12-02] MEDS: ONDANSETRON 4 MG INJ IV (12:01)
[2018-12-02] MEDS: VANCOMYCIN 1 GM 250 ML IVPB (12:46)
[2018-12-02] MEDS: HYDROmorphONE 0.5 MG/0.5 ML SYG IV (14:57)
[2018-12-02] MEDS: MAGNESIUM SULFATE 1 GM/D5W 100 ML IVPB (18:37)
[2018-12-03] MEDS: PIPER-TAZO 3.375 GM IV (PMX) 100 ML IVPB ×3 (00:22→11:38)
[2018-12-03] MEDS: SOD CHLORIDE 0.9% 1,000 ML IV ×2 (05:44→14:25)
== END 2018-12-03 15:46 | disposition home or self-care (01) | DRG 769 ==
LOC: FTE 19:56 → PP2 11-29 00:50
PROC: 0FT44ZZ Resection of Gallbladder, Percutaneous Endoscopic Approach (ICD-10-PCS; principal; 2018-11-30 12:14)
PROC: 0FJB8ZZ Inspection of Hepatobiliary Duct, Via Natural or Artificial Opening Endoscopic (ICD-10-PCS; 2018-11-30 12:14)
DX: O99.63 Diseases of the digestive system complicating the puerperium (principal); K80.10 Calculus of gallbladder with chronic cholecystitis without obstruction; O99.285 Endocrine, nutritional and metabolic diseases complicating the puerperium; E87.6 Hypokalemia; O86.20 Urinary tract infection following delivery, unspecified
CPT/HCPCS: 36415; 71045; 74176; 74181; 74330; 76705; 80053; 80061; 81001; 81025; 82728; 83036; 83540; 83690; 83735; 84443; 85025; 87086; 88304; 94664; 96374; 96375; 99285-25; G0378